=== PATIENT | female | born 1975 | race Caucasian/White ===

== ENCOUNTER 2017-10-25 12:49 | Day surgery (SDC) | payer BC ==
[~2017-10-25 12:49] MED LIST: ACETAMINOPHEN 325 MG TAB PO; PHENYLEPHRINE HCL 10 % OPHTH. SOL 5ML OS
[2017-10-25] MEDS: LIDOCAINE 3.5 % 1ML OPHTH TOPICAL GEL OU (14:10)
[2017-10-25] MEDS: TROPICAMIDE 1% OPHTH SOLN 2ML OS (14:15)
[2017-10-25] MEDS: PHENYLEPHRINE 2.5% OPHTH SOL 2ML OS (14:15)
[2017-10-25] MEDS: CYCLOPENTOLATE 2% OPHTH SOLN 2ML BTL OS (14:15)
[2017-10-25] MEDS: OFLOXACIN 0.3 % (OCUFLOX) OPTH SOL 5ML OS (14:15)
[2017-10-25 15:00] LABS: CONTROL LINE UCG INT CTR LINE PRESENT; URINE PREG TEST NEGATIVE (NEGATIVE)
[2017-10-25] MEDS ORDERED: MIDAZOLAM INJ 2 MG/2 ML VIAL (J2250) As Ordered (15:02)
[2017-10-25] MEDS ORDERED: fentaNYL 100 MCG/2 ML INJECTION (J3010) As Ordered (15:02)
[2017-10-25] MEDS: TRYPAN BLUE 0.06 % 2.25 ML OPHTH SYR (VISIONBLUE) As Ordered (16:24)
[2017-10-25] MEDS: LIDOCAINE 1% SDV 5 ML VIAL As Ordered (16:24)
[2017-10-25] MEDS: POVIDONE-IODINE 5% OPHTH PREP SOL 30ML As Ordered (16:24)
[2017-10-25] MEDS: HEALON DUET (HEALON 10MG/ML 0.55ML & HEALON ENDOCOAT 30MG/ML 0.85ML) As Ordered (16:32)
[2017-10-25] MEDS: BSS with VANC/TOB/EPI for EYE CASES IR (16:32)
[2017-10-25] MEDS: TRIAMCINOLONE PRES FR 40 MG/ML 1ML(TRIESENCE)(OR EYE ONLY)(J3300 PER 1MG) As Ordered (16:32)
[2017-10-25] MEDS: MOXIFLOXACIN IN BSS 0.25MG/0.25ML INTRACAMERAL INJ (OR EYE ONLY)(J2280) As Ordered (16:32)
[2017-10-25] MEDS ORDERED: TRIMETHOBENZAMIDE 300 MG CAP PO (17:00)
[2017-10-25] MEDS: AcetaZOLAMIDE 500 MG ER CAP PO (17:05)
== END 2017-10-25 17:22 | disposition home or self-care (01) ==
LOC: M SDC 12:49
DX: H26.9 Unspecified cataract (principal); R51 Headache
CPT/HCPCS: 66984